=== PATIENT | male | born 2000 | race Hispanic/Latino ===

== ENCOUNTER → 2023-08-26 | Emergency (ER) | payer SELFPAY ==
--- NOTE | 2023-08-26 17:07 | ER ---
Nurse's Notes [facility] Name: Hugo Taylor Age: 23 yrs Sex: Male : 2000 Arrival Date: 08/26/2023 Time: 16:57 Bed 4 Private MD: Diagnosis: Altered mental status, unspecified Presentation: 08/26 16:59 Chief complaint: EMS states: were toned out for possible seizure like activity, pt was iw driving, pulled over because he was feeling bad , he was vomiting, was confused when EMS got on scene, pt is A\T\)X 3 upon arrival to ER , pt requesting to be discharged. Coronavirus screen: At this time, the client does not indicate any symptoms associated with coronavirus-19. Ebola Screen: Patient negative for fever greater than or equal to 101.5 degrees Fahrenheit, and additional compatible Ebola Virus Disease symptoms Patient denies exposure to infectious person. Patient denies travel to an Ebola-affected area in the 21 days before illness onset. No symptoms or risks identified at this time. Initial Sepsis Screen: Does the patient meet any 2 criteria? No. Patient's initial sepsis screen is negative. Does the patient have a suspected source of infection? No. Patient's initial sepsis screen is negative. Risk Assessment: Do you want to hurt yourself or someone else?. Onset of symptoms was August 26, 2023. 16:59 Method Of Arrival: EMS: [facility] iw 16:59 Acuity: CLARENCE 3 iw - Family history:: not pertinent. Screenin:06 [facility] ED Fall Risk Assessment (Adult) Score/Fall Risk Level 0 - 2 = Low Risk. Abuse iw screen: Denies threats or abuse. Denies injuries from another. Nutritional screening: No deficits noted. Tuberculosis screening: No symptoms or risk factors identified. Assessment: 16:58 Reassessment: pt walking out of room, asked to let doctor speak to him before leaving , iw pt agrees. 17:05 General: Appears in no apparent distress. Behavior is cooperative. Pain: Denies pain. iw Neuro: Level of Consciousness is awake, alert, obeys commands, Oriented to person, place, time, situation, Moves all extremities. Full function. Cardiovascular: Patient's skin is warm and dry. Respiratory: Respiratory effort is even, unlabored, Respiratory pattern is regular. GI: Abdomen is non-distended. Derm: Skin is normal. Musculoskeletal: Range of motion: intact in all extremities. Vital Signs: 16:59 BP 135 / 79; Pulse 97; Resp 16; Pulse Ox 100% on R/A; iw ED Course: 16:59 Patient arrived in ED. iw 16:59 Patient has correct armband on for positive identification. Bed in low position. Call kc6 light in reach. Side rails up X 1. Adult w/ patient. Client placed on continuous cardiac and pulse oximetry monitoring. NIBP monitoring applied. 16:59 Patient maintains SpO2 saturation greater than 95% on room air. kc6 17:00 Jose Mcgowan MD is Attending Physician. rt 17:02 Triage completed. iw 17:03 Arm band placed on. iw 17:06 Negra Hoyos RN is Primary Nurse. kc6 17:09 No provider procedures requiring assistance completed. Patient did not have IV access kc6 during this emergency room visit. Administered Medications: No medications were administered Medication: 17:06 VIS not applicable for this client. iw Outcome: 17:05 Discharge ordered by . rt 17:09 Discharged to home ambulatory, with family, kc6 17:09 Condition: good 17:09 Discharge instructions given to patient, Instructed on discharge instructions, follow up and referral plans. Demonstrated understanding of instructions, follow-up care, 17:10 Patient left the ED. kc Signatures: Kanwal Nichols RN RN iw Negra Hoyos RN RN kc Jose Mcgowan MD MD rt
--- NOTE | 2023-08-26 17:07 | EDPHYS ---
Physician Documentation [facility] Name: Hugo Taylor Age: 23 yrs Sex: Male : 2000 Arrival Date: 08/26/2023 Time: 16:57 Bed 4 Private MD: ED Physician Jose Mcgowan HPI: 08/26 17:09 This 23 yrs old Male presents to ER via EMS with complaints of Altered Mental Status. rt 17:09 Patient presents to the ED with a resolved altered mental status. Patient for loss rt consciousness at [facility], EMS was called, patient was confused at that time, unclear if there is seizure-like activity or not. Patient had returned to baseline, has no complaints currently. Patient adamantly states that he does not wish to have any workup be performed and that he wishes to be discharged. Symptoms are moderate severity, no other aggravating leaving symptoms.. - Family history:: not pertinent. ROS: 17:09 Constitutional: Negative for fever, chills, and weight loss, Cardiovascular: Negative rt for chest pain, palpitations, and edema, Respiratory: Negative for shortness of breath, cough, wheezing, and pleuritic chest pain, Abdomen/GI: Negative for abdominal pain, nausea, vomiting, diarrhea, and constipation, MS/Extremity: Negative for injury and deformity, Skin: Negative for injury, rash, and discoloration, Psych: Negative for depression, anxiety, suicide ideation, homicidal ideation, and hallucinations, 17:09 Neuro: Positive for altered mental status, loss of consciousness, Exam: 17:09 Constitutional: This is a well developed, well nourished patient who is awake, alert, rt and in no acute distress. Head/Face: Normocephalic, atraumatic. Chest/axilla: Normal chest wall appearance and motion. Nontender with no deformity. No lesions are appreciated. Cardiovascular: Regular rate and rhythm with a normal S1 and S2. No gallops, murmurs, or rubs. Normal PMI, no JVD. No pulse deficits. Respiratory: Lungs have equal breath sounds bilaterally, clear to auscultation and percussion. No rales, rhonchi or wheezes noted. No increased work of breathing, no retractions or nasal flaring. Abdomen/GI: Soft, non-tender, with normal bowel sounds. No distension or tympany. No guarding or rebound. No evidence of tenderness throughout. Skin: Warm, dry with normal turgor. Normal color with no rashes, no lesions, and no evidence of cellulitis. MS/ Extremity: Pulses equal, no cyanosis. Neurovascular intact. Full, normal range of motion. Psych: Awake, alert, with orientation to person, place and time. Behavior, mood, and affect are within normal limits. 17:09 Neuro: Normal speech, clear no cranial nerve deficits, strength and sensation intact upper lower extremities, normal gait, Vital Signs: 16:59 BP 135 / 79; Pulse 97; Resp 16; Pulse Ox 100% on R/A; iw MDM: 17:00 Patient medically screened. rt 17:09 Differential Diagnosis: Seizure, syncope. Data reviewed: vital signs, nurses notes. rt Refusal of service: The patient/guardian displays adequate decision making capability and despite a detailed discussion of alternatives, benefits, risks, and consequences refuses: CT Scan, all lab tests, all X-rays, Recommended that the patient obtain an EKG, CT scan of the head, labs. Patient states that he does not wish to have any of these test be performed. Informed the patient that neurologic or cardiac compromise could be present and we would not know this unless we did some testing. Patient verbalized understanding, states that he still does not wish to have any workup be performed. He has decision-making capacity. He understands that he may return anytime if he changes his mind or if he develops worsening symptoms.. Administered Medications: No medications were administered Disposition Summary: 08/26/23 17:05 Discharge Ordered Notes: Location: Home rt Problem: new rt Symptoms: have improved rt Condition: Undetermined rt Diagnosis - Altered mental status, unspecified rt Followup: rt - With: Private Physician - When: 2 - 3 days - Reason: Followup: rt - With: Emergency Department - When: As needed - Reason: Discharge Instructions: - Discharge Summary Sheet rt - Confusion rt - Seizure, Adult rt - Syncope rt Forms: - Medication Reconciliation Form rt - Thank You Letter rt - Antibiotic Education rt - Prescription Opioid Use rt - Patient Portal Instructions rt - Leadership Thank You Letter rt Signatures: Jose Mcgowan MD MD rt
[2023-08-26 20:43] VITALS: BP 135/79; O2SAT 100
== END ==
LOC: ER 16:57
DX: R41.82 Altered mental status, unspecified (principal)
CPT/HCPCS: 99284